=== PATIENT | male | born 1975 | race Caucasian/White ===

== ENCOUNTER 2019-06-16 03:26 | Outpatient (CLI) | payer MEDICARE | END 2019-06-16 03:27 | disposition critical access hospital (66) | LOC: EMS 03:26 | PROVIDERS: ATTEND Surgery | DX: R10.9 Unspecified abdominal pain (principal); R19.7 Diarrhea, unspecified | CPT/HCPCS: A0425; A0429 ==

== ENCOUNTER 2019-06-16 03:44 | Emergency (ER) | payer MEDICARE ==
--- NOTE | 2019-06-16 04:19 | ED Physician Documentation ---
PD HPI ABD PAIN - Stated complaint Stated Complaint: ABD PAIN - Chief complaint Chief Complaint: Abd Pain - History obtained from History obtained from: Patient, EMS - History of Present Illness Timing - onset: How many days ago (3) Timing - duration: Days Timing - details: Gradual onset, Intermittant, Waxing and waning Pain level max: 6 Pain level now: 2 Quality: Cramping Location: All over / everywhere Radiation: Other (no radiation) Improved by: Other (no ameliorating factors) Worsened by: Other (no exacerbating factors) Associated symptoms: Diarrhea. No: Fever, Nausea, Vomiting, Melena, Hematochezia Similar symptoms before: Has not had sx before Recently seen: Not recently seen Review of Systems Constitutional: reports: Reviewed and negative Cardiac: reports: Reviewed and negative Respiratory: reports: Reviewed and negative GI: reports: Abdominal Pain, Diarrhea. denies: Nausea, Vomiting, Hematemesis, Bloody / black stool : denies: Dysuria, Frequency PD PAST MEDICAL HISTORY - Past Medical History Past Medical History: No - Past Surgical History Past Surgical History: No - Present Medications Home Medications: Ambulatory Orders Medication Instructions Recorded Confirmed Cephalexin 500 mg PO TID #20 capsule 10/08/13 Metronidazole [Flagyl] 500 mg PO TID #30 tablet 06/16/19 - Allergies Allergies/Adverse Reactions: Allergies Allergy/AdvReac Type Severity Reaction Status Date / Time No Known Drug Allergies Allergy Verified 10/08/13 07:01 - Social History Does the pt smoke?: Yes Smoking Status: Current every day smoker Does the pt drink ETOH?: No Does the pt have substance abuse?: No - Immunizations Immunizations are current?: Yes - POLST Patient has POLST: No PD ED PE NORMAL - Vitals Vital signs reviewed: Yes - General General: Alert and oriented X 3, No acute distress, Well developed/nourished - Cardiac Cardiac: RRR, No murmur, No gallop, No rub - Respiratory Respiratory: No respiratory distress, Clear bilaterally - Abdomen Abdomen: Soft, Non distended, Other (mild TTP across lower abdomen and periumbilical region) - Back Back: No CVA TTP - Derm Derm: Normal color, Warm and dry, No rash Results - Vitals Vitals: Vital Signs - 24 hr 06/16/19 06:09 Heart Rate 90 Respiratory 16 Rate Blood Pressure 105/58 L O2 Saturation 98 Oxygen O2 Source Room air - Labs Labs: Microbiology 06/16/19 04:35 Campylobacter Antigen Assay - Final Stool Laboratory Tests 06/16/19 06/16/19 06/16/19 04:35 04:45 04:45 WBC 6.9 RBC 4.97 Hgb 14.0 Hct 42.7 MCV 85.9 MCH 28.2 MCHC 32.8 RDW 13.2 Plt Count 247 MPV 10.6 Neut # (Auto) 4.8 Lymph # (Auto) 0.5 L [place] # (Auto) 1.5 H Eos # (Auto) 0.1 Baso # (Auto) 0.1 Absolute Nucleated RBC 0.00 Nucleated RBC % 0.0 Sodium 133 L Potassium 3.0 L Chloride 94 L Carbon Dioxide 28 Anion Gap 11.0 BUN 19 Creatinine 1.0 Estimated GFR (MDRD) 81 L Glucose 123 H Calcium 8.2 L Total Bilirubin 1.6 H AST 13 ALT 17 Alkaline Phosphatase 59 Total Protein 6.7 Albumin 3.3 Globulin 3.4 Albumin/Globulin Ratio 1.0 Lipase 18 L Urine Color Urine Clarity Urine pH Ur Specific [place] Urine Protein Urine Glucose (UA) Urine Ketones Urine Occult Blood Urine Nitrite Urine Bilirubin Urine Urobilinogen Ur Leukocyte Esterase Ur Microscopic Review Urine Culture Comments Stl C. diff Tox B Gene POSITIVE A* 06/16/19 06:00 WBC RBC Hgb Hct MCV MCH MCHC RDW Plt Count MPV Neut # (Auto) Lymph # (Auto) [place] # (Auto) Eos # (Auto) Baso # (Auto) Absolute Nucleated RBC Nucleated RBC % Sodium Potassium Chloride Carbon Dioxide Anion Gap BUN Creatinine Estimated GFR (MDRD) Glucose Calcium Total Bilirubin AST ALT Alkaline Phosphatase Total Protein Albumin Globulin Albumin/Globulin Ratio Lipase Urine Color YELLOW Urine Clarity CLEAR Urine pH 6.5 Ur Specific [place] <=1.005 Urine Protein TRACE Urine Glucose (UA) NEGATIVE Urine Ketones 40 H Urine Occult Blood NEGATIVE Urine Nitrite NEGATIVE Urine Bilirubin NEGATIVE Urine Urobilinogen 1 (NORMAL) Ur Leukocyte Esterase NEGATIVE Ur Microscopic Review NOT INDICATED Urine Culture Comments NOT INDICATED Stl C. diff Tox B Gene - Rads (name of study) CT A/P Radiology: Prelim report reviewed, See rad report PD MEDICAL DECISION MAKING - ED course Complexity details: reviewed results, re-evaluated patient, considered differential, d/w patient Departure - Departure Disposition: 01 Home, Self Care Clinical Impression: Clostridium difficile colitis Condition: Good Instructions: Clostridium Difficile Infec Prescriptions: Metronidazole [Flagyl] 500 mg PO TID #30 tablet Discharge Date/Time: 06/16/19 08:09
[2019-06-16] MEDS ORDERED: SODIUM CHLORIDE 0.9% 1,000 ML IV STA (04:35)
[2019-06-16] MEDS ORDERED: IOVERSOL 320 100 ML VIAL IVP ONE ×2 (04:56→05:52)
[2019-06-16 05:21] LABS: BASOPHILS # (AUTO) 0.1 10^3/uL (0.0-0.1); EOSINOPHILS # (AUTO) 0.1 10^3/uL (0.0-0.7); EOSINOPHILS % (AUTO) 0.9 %; LYMPHOCYTES # (AUTO) 0.5 10^3/uL (1.5-3.5); LYMPHOCYTES % (AUTO) 6.8 %; MEAN CORPUSCULAR HEMOGLOBIN 28.2 pg (27.0-31.0); MEAN CORPUSCULAR HGB CONC 32.8 g/dL (32.0-36.0); MEAN CORPUSCULAR VOLUME 85.9 fL (80.0-94.0); MEAN PLATELET VOLUME 10.6 fL (7.4-11.4); MONOCYTES # (AUTO) 1.5 10^3/uL (0.0-1.0); MONOCYTES % (AUTO) 21.1 %; NEUTROPHILS # (AUTO) 4.8 10^3/uL (1.5-6.6); NEUTROPHILS % (AUTO) 69.6 %; PLT - PLATELET COUNT 247 10^3/uL (130-450); RED BLOOD COUNT 4.97 10^6/uL (4.70-6.10); RED CELL DISTRIBUTION WIDTH 13.2 % (12.0-15.0); WHITE BLOOD COUNT 6.9 x10^3/uL (4.8-10.8)
[2019-06-16 05:30] LABS: ALBUMIN 3.3 g/dL (3.2-5.5); BILIRUBIN,TOTAL 1.6 mg/dL (0.2-1.0); CALCIUM 8.2 mg/dL (8.5-10.3); TOTAL PROTEIN 6.7 g/dL (6.7-8.2)
[2019-06-16 06:09] VITALS: BP 105/58
--- NOTE | 2019-06-16 06:10 | CT Report ---
Reason: LLQ abdominal pain Procedure Date: 06/16/2019 Accession Number: [id number] / [id number] Procedure: CT - Abdomen/Pelvis W CPT Code: FULL RESULT: EXAM: CT ABDOMEN AND PELVIS EXAM DATE: 06/16/2019 05:55 AM. CLINICAL HISTORY: LLQ abdominal pain. COMPARISONS: None. TECHNIQUE: Routine helical CT imaging was performed through the abdomen and pelvis. IV contrast: OPTI 320 100ML. Enteric contrast: No. Reconstructions: Coronal and sagittal. In accordance with CT protocol optimization, one or more of the following dose reduction techniques were utilized for this exam: automated exposure control, adjustment of mA and/or KV based on patient size, or use of iterative reconstructive technique. FINDINGS: Lung Bases: Unremarkable. Liver: No focal abnormality seen. Gallbladder/Bile Ducts: Cholelithiasis. No obvious cholecystitis. Spleen: Normal. Pancreas: Normal. Adrenal Glands: Normal. Kidneys: Normal. No masses or hydronephrosis. Peritoneal Cavity/Bowel: Colonic wall thickening from the transverse colon through the rectum consistent with colitis. No bowel obstruction seen. No free air or free fluid. No diverticulitis. Normal-sized retroperitoneal lymph nodes. Appendix is not well seen. No evidence of appendicitis. Pelvic Organs: Urinary bladder wall thickening. Vasculature: No aneurysms or other significant abnormality. Bones: No significant abnormality. Other: None. IMPRESSION: 1. Colitis from the transverse colon through the rectum, most likely infectious colitis or inflammatory bowel disease. 2. Urinary bladder wall thickening. Correlate with urinalysis for the possibility of cystitis. 3. Cholelithiasis without evidence of cholecystitis. RADIA
[2019-06-16 06:16] LABS: GLUCOSE, URINE (UA) NEGATIVE (NEGATIVE); KETONES,URINE (UA) 40 mg/dL (NEGATIVE); LEUKOCYTE ESTERASE, URINE NEGATIVE (NEGATIVE); NITRITE,URINE NEGATIVE (NEGATIVE); OCCULT BLOOD,URINE NEGATIVE (NEGATIVE); PH,URINE 6.5 PH (5.0-7.5); PROTEIN,URINE TRACE mg/dL (NEGATIVE); UROBILINOGEN,URINE 1 (NORMAL) E.U./dL (NORMAL)
[2019-06-16 06:19] LABS: BILIRUBIN,URINE NEGATIVE (NEGATIVE); CLARITY,URINE CLEAR (CLEAR); ICTOTEST,URINE NEGATIVE
[2019-06-16] MEDS ORDERED: metroNIDAZOLE 250 MG TABLET PO STA (07:54)
== END 2019-06-16 08:09 | disposition home or self-care (01) ==
LOC: EDUNIT# → EDBD → ED 03:44
DX: A04.72 Enterocolitis due to Clostridium difficile, not specified as recurrent (principal); K80.20 Calculus of gallbladder without cholecystitis without obstruction; F17.200 Nicotine dependence, unspecified, uncomplicated
CPT/HCPCS: 36415; 74177; 80053; 81003; 83690; 85025; 87045; 87046; 87493; 96360; 99284; A9270; Q9967; 81001; 87086

== ENCOUNTER 2020-10-30 15:24 | Emergency (ER) | payer SELFPAY ==
[2020-10-30] MEDS ORDERED: BUFFERED LIDOCAINE 10 ML SYRINGE SUBQ STA (15:34)
[2020-10-30] MEDS ORDERED: TETANUS/DIPHTHERIA/PERTUSSIS 0.5 ML SYRINGE IM ONE (15:34)
--- NOTE | 2020-10-30 15:36 | ED Physician Documentation ---
PD HPI UPPER EXT INJURY - Stated complaint Stated Complaint: LT HAND LAC - Chief complaint Chief Complaint: Laceration - History obtained from History obtained from: Patient - Additonal information Additional information: Right Handed gentleman with unknown tetanus status cut the dorsum of his left hand with an axe accidentally just prior to arrival. Review of Systems Constitutional: reports: Reviewed and negative Eyes: reports: Reviewed and negative Ears: reports: Reviewed and negative Nose: reports: Reviewed and negative Throat: reports: Reviewed and negative PD PAST MEDICAL HISTORY - Past Surgical History Past Surgical History: No - Present Medications Home Medications: Ambulatory Orders Medication Instructions Recorded Confirmed HYDROcod/ACETAM 5/325 [Linden 5/325] 1 - 2 tab PO Q6H PRN #15 tablet 10/30/20 cephALEXin [Keflex] 500 mg PO Q6H #28 cap 10/30/20 - Allergies Allergies/Adverse Reactions: Allergies Allergy/AdvReac Type Severity Reaction Status Date / Time No Known Drug Allergies Allergy Verified 10/30/20 15:27 - Social History Does the pt smoke?: Yes Smoking Status: Current every day smoker Does the pt drink ETOH?: No Does the pt have substance abuse?: No - Immunizations Immunizations are current?: Yes - POLST Patient has POLST: No PD ED PE NORMAL - Vitals Vital signs reviewed: Yes - General General: Alert and oriented X 3, No acute distress - Extremities Extremities: Other (3 cm laceration oblique over the dorsal mid second and third metacarpals without distal neurovascular compromise. Tendon function will be tested after anesthetic.) - Neuro Neuro: Alert and oriented X 3, Normal speech Results - Vitals Vitals: Vital Signs - 24 hr 10/30/20 15:29 Temperature 35.8 C L Heart Rate 96 Respiratory 20 Rate Blood Pressure 155/95 H O2 Saturation 97 Oxygen O2 Source Room air Procedures - Laceration (location) L hand Length in cm: 3 Wound type: Linear Neurovascular status: Sensory intact, Vascular intact Tendon involvement: Tendon Injury (On wound exploration after anesthetic became clear that the extensor tendon of the second digit was at least partially lacerated and probably a partial laceration of the third extensor tendon 2.) Anesthesia: Lidocaine 1%, With bicarb Wound preparation: Irrigated copiously NS Skin layer closure: Nylon, Interrupted, Size #-0 - enter number (4-0), Sutures - enter # (5) Other: Patient tolerated well, No complications, Tetanus booster given - Splint (location) L hand Splint applied by: Tech Type of splint: Fiberglass, Short arm, Volar cock up Other: Patient tolerated well, No complications, Neurovascular intact PD MEDICAL DECISION MAKING - ED course ED course: 45-year-old gentleman presents with nondominant hand injury, labs from 3 significant tenderness I did Apley a partial one of the third. It was thoroughly washed out and the skin was closed. He is placed on Keflex. An x- ray was done With evidence of a unicortical dorsal second metacarpal fracture. He was splinted and I discussed the case with the on-call orthopedist, Dr. Dimitris Miller by phone who will see him in follow-up. Departure - Departure Disposition: 01 Home, Self Care Clinical Impression: Open fracture metacarpal bone of finger Hand laceration involving tendon Qualifiers: Encounter type: initial encounter Laterality: left Qualified Code(s): S61.412A - Laceration without foreign body of left hand, initial encounter; S66.922A - Laceration of unspecified muscle, fascia and tendon at wrist and hand level, left hand, initial encounter Condition: Good Record reviewed to determine appropriate education?: Yes Instructions: ED Fx Hand Open, ED Laceration Tendon Follow-Up: [facility] [Provider Group] Prescriptions: cephALEXin [Keflex] 500 mg PO Q6H #28 cap HYDROcod/ACETAM 5/325 [Linden 5/325] 1 - 2 tab PO Q6H PRN #15 tablet PRN Reason: Pain Comments: You do have a tendon laceration and a little chip of bone where the ax hit you. This requires follow-up with an orthopedic surgeon. Call their office today or tomorrow for the next available appointment. I did discuss her case by phone with Dr. Dimitris Miller who is in the office.
[2020-10-30] MEDS ORDERED: cephALEXin 250 MG CAPSULE PO STA (16:03)
--- NOTE | 2020-10-30 16:21 | XRAY Report ---
PROCEDURE: Hand 3 View LT INDICATIONS: hand lac TECHNIQUE: 3 views of the hand(s) acquired. COMPARISON: None. FINDINGS: A subtle linear lucency involving the cortex of the third metacarpal although only seen on one view Soft tissue laceration along the dorsal aspect of the hand. IMPRESSION: Possible incomplete nondisplaced fracture involving the third metacarpal, however technically indeter minate. Further assessment/confirmation could be obtained with repeat radiograph in 10 days to assess for healing sclerosis. Overlying soft tissue laceration and swelling. Reviewed by: Favio Murdock MD on 10/30/2020 4:20 PM [facility] Approved by: Favio Murdock MD on 10/30/2020 4:20 PM [facility] Station ID: [id number]
[2020-10-30 16:47] VITALS: BP 138/85
== END 2020-10-30 16:53 | disposition home or self-care (01) ==
LOC: ED 15:24
DX: S62.301B Unspecified fracture of second metacarpal bone, left hand, initial encounter for open fracture (principal); S66.321A Laceration of extensor muscle, fascia and tendon of left index finger at wrist and hand level, initial encounter; W27.0XXA Contact with workbench tool, initial encounter; Y93.89 Activity, other specified; Z23 Encounter for immunization; F17.200 Nicotine dependence, unspecified, uncomplicated
CPT/HCPCS: 12042; 29125; 73130; 90471; 90715; 99283; A9270

== ENCOUNTER 2021-12-15 17:19 | Emergency (ER) | payer MEDICAID ==
[2021-12-15 17:26] VITALS: BP 109/88
[2021-12-15] MEDS ORDERED: CLINDAMYCIN 150 MG CAPSULE PO STA (17:33)
--- NOTE | 2021-12-15 17:35 | ED Physician Documentation ---
PD HPI WOUND RECHECK - Stated complaint Stated Complaint: RT LEG WOUNDS - Chief complaint Chief Complaint: Wound - Histroy obtained from History obtained from: Patient - Additional information Additional information: 46-year-old gentleman has right greater than left leg wounds for the last few days. No recollected meant mechanism of injury. When asked if he has been using any methamphetamines he said not recently but seem to vacillate on the story. He denies fevers or chills. Just has pain from weeping wounds on the legs. Review of Systems Constitutional: denies: Fever, Chills Nose: denies: Rhinorrhea / runny nose, Congestion Cardiac: reports: Reviewed and negative Respiratory: reports: Reviewed and negative PD PAST MEDICAL HISTORY - Past Medical History Cardiovascular: None Respiratory: None Neuro: None Endocrine/Autoimmune: None GI: None : None HEENT: None Psych: Other Musculoskeletal: None Derm: None - Past Surgical History Past Surgical History: No - Present Medications Home Medications: Ambulatory Orders Medication Instructions Recorded Confirmed clindamycin HCL [Cleocin HCl] 300 mg PO QID #28 cap 12/15/21 - Allergies Allergies/Adverse Reactions: Allergies Allergy/AdvReac Type Severity Reaction Status Date / Time No Known Drug Allergies Allergy Verified 12/15/21 17:21 - Social History Does the pt smoke?: Yes Smoking Status: Current every day smoker Does the pt drink ETOH?: No Does the pt have substance abuse?: No - Immunizations Immunizations are current?: No Immunizations: Other immun not current - POLST Patient has POLST: No PD ED PE NORMAL - Vitals Vital signs reviewed: Yes - General General: Alert and oriented X 3, No acute distress - Extremities Extremities: Other (There are cellular several purulent based ulcers on the right greater than left leg, 2 on the anterior mac and 1 on the posteromedial mac and then some smaller ones on the anterior left mac.) - Neuro Neuro: Alert and oriented X 3, Normal speech Results - Vitals Vitals: Vital Signs - 24 hr 12/15/21 17:22 Temperature 36.6 C Heart Rate 88 Respiratory 18 Rate Blood Pressure 109/88 H O2 Saturation 97 Oxygen O2 Source Room air PD MEDICAL DECISION MAKING - ED course ED course: 46-year-old gentleman with a few purulent leg wounds of unclear etiology. He is started on clindamycin pending culture data. He declines pain medications. Departure - Departure Disposition: Home, Self Care Clinical Impression: Bilateral leg ulcer Qualifiers: Non-pressure ulcer stage: limited to breakdown of skin Qualified Code(s): L97.911 - Non-pressure chronic ulcer of unspecified part of right lower leg limited to breakdown of skin; L97.921 - Non-pressure chronic ulcer of unspecified part of left lower leg limited to breakdown of skin Condition: Good Record reviewed to determine appropriate education?: Yes Instructions: ED Bonny Infec Abx Tx Only Prescriptions: clindamycin HCL [Cleocin HCl] 300 mg PO QID #28 cap Comments: I sent the prescription for antibiotics electronically to [facility] in [place]. For wound care keep them clean and dry, washing with soap and water at least daily. Return Friday or Friday morning for recheck and culture review.
== END 2021-12-15 18:00 | disposition home or self-care (01) ==
LOC: ED 17:19
DX: L97.821 Non-pressure chronic ulcer of other part of left lower leg limited to breakdown of skin (principal); L97.811 Non-pressure chronic ulcer of other part of right lower leg limited to breakdown of skin; F17.200 Nicotine dependence, unspecified, uncomplicated
CPT/HCPCS: 87070; 87077; 87205; 99283; A9270

== ENCOUNTER 2023-07-24 17:24 | Emergency (ER) | payer MEDICAID ==
[2023-07-24 17:43] VITALS: BP 165/94; O2SAT 100
[2023-07-24] MEDS ORDERED: cephALEXin 250 MG CAPSULE PO STA (18:01)
[2023-07-24] MEDS ORDERED: SULFAMETH/TRIMETH DS 800/160 MG TABLET PO STA (18:01)
--- NOTE | 2023-07-24 18:03 | ED Physician Documentation ---
History of Present Illness - Stated complaint Stated Complaint: BILAT LEG PX - Chief complaint Chief Complaint: Ext Problem - History obtained from History obtained from: Patient - History of Present Illness Timing: Chronic Pain level max: 0 Pain level now: 0 - Additonal information Additional information: 47-year-old male with chronic bilateral lower extremity wounds and redness. Has not followed up with a PCP. He states they started becoming more red and inflamed a few days ago so he came in for evaluation. Denies any recent drug use. No fevers. No chills. Nothing makes it better or worse. He states his legs are not more swollen than usual. He is not on any medications at home. Review of Systems Constitutional: denies: Fever, Chills Cardiac: denies: Chest pain / pressure, Palpitations Respiratory: denies: Dyspnea, Cough GI: denies: Nausea, Vomiting Skin: denies: Rash Musculoskeletal: denies: Neck pain, Back pain Neurologic: denies: Headache PD PAST MEDICAL HISTORY - Past Medical History Cardiovascular: None Respiratory: None Neuro: None Endocrine/Autoimmune: None GI: None : None HEENT: None Psych: Other Musculoskeletal: None Derm: None - Past Surgical History Past Surgical History: No - Present Medications Home Medications: Ambulatory Orders Medication Instructions Recorded Confirmed Sulfamethox/Trimeth 800/160 1 each PO BID #20 tablet 07/24/23 [Bactrim Ds 800/160] cephALEXin [Keflex] 500 mg PO Q6H #40 cap 07/24/23 - Allergies Allergies/Adverse Reactions: Allergies Allergy/AdvReac Type Severity Reaction Status Date / Time No Known Drug Allergies Allergy Verified 07/24/23 17:36 - Social History Does the pt smoke?: Yes Smoking Status: Current every day smoker Does the pt drink ETOH?: No Does the pt have substance abuse?: No - Immunizations Immunizations are current?: No Immunizations: Other immun not current - POLST Patient has POLST: No PD ED PE NORMAL - Vitals Vital signs reviewed: Yes - General General: Alert and oriented X 3, No acute distress - HEENT HEENT: Moist mucous membranes - Neck Neck: Supple, no meningeal sign - Cardiac Cardiac: RRR - Respiratory Respiratory: No respiratory distress, Clear bilaterally - Derm Derm: Warm and dry - Extremities Extremities: Other (Bilateral lower extremities of small open sores, slight yellow drainage. No significant warmth. Have chronic appearing erythema. No calf tenderness or cord.) - Neuro Neuro: Alert and oriented X 3 Results - Vitals Vitals: Vital Signs - 24 hr 07/24/23 17:30 Temperature 36.6 C Heart Rate 87 Respiratory 17 Rate Blood Pressure 165/94 H O2 Saturation 100 Oxygen O2 Source Room air PD Medical Decision Making - ED course Complexity details: considered differential, d/w patient ED course: Patient is well-appearing, nontoxic. Afebrile. No evidence of sepsis. He has chronic appearing wounds that may be secondarily infected now. Will start him on antibiotics. Recommended follow-up with his PCP closely for wound care. He was given information for the walk-in clinic in [place] so he can be followed there as well. Patient declines any pain medication here for home. Patient counseled regarding signs and symptoms for which I believe and urgent re- evaluation would be necessary. Patient with good understanding of and agreement to plan and is comfortable going home at this time This document was made in part using voice recognition software. While efforts are made to proofread this document, sound alike and grammatical errors may occur. Departure - Departure Disposition: 01 Home, Self Care Clinical Impression: Cellulitis Qualifiers: Site of cellulitis: extremity Site of cellulitis of extremity: lower extremity Laterality: unspecified laterality Qualified Code(s): L03.119 - Cellulitis of unspecified part of limb Condition: Good Instructions: ED Infec Skin Cellulitis Follow-Up: [facility] [place] [Provider Group] Prescriptions: Sulfamethox/Trimeth 800/160 [Bactrim Ds 800/160] 1 each PO BID #20 tablet cephALEXin [Keflex] 500 mg PO Q6H #40 cap Comments: Your prescriptions were sent to [facility] in [place]. Take all antibiotics until gone. Is important to follow-up closely with the walk-in clinic in [place] so that they can monitor your legs and treat your chronic wounds. Please return if you worsen, including fevers, increasing pain or worsening redness or swelling. Please elevate your legs whenever possible. Forms: PCP List Discharge Date/Time: 07/24/23 18:20
== END 2023-07-24 18:20 | disposition home or self-care (01) ==
LOC: ED 17:24
DX: L03.116 Cellulitis of left lower limb (principal); L03.115 Cellulitis of right lower limb; F17.200 Nicotine dependence, unspecified, uncomplicated
CPT/HCPCS: 99282; 99283; A9270

== ENCOUNTER 2024-03-11 10:05 | Emergency (ER) | payer MEDICAID ==
[2024-03-11 10:36] VITALS: O2SAT 99
--- NOTE | 2024-03-11 11:24 | XRAY Report ---
PROCEDURE: Tib/Fib LT INDICATIONS: infection, open draining sore TECHNIQUE: 2 views of the tibia and fibula were acquired. COMPARISON: None. FINDINGS: Bones: No fractures or dislocations. No suspicious bony lesions. Soft tissues: No suspicious soft tissue calcifications or masses. IMPRESSION: No acute bony abnormality. Reviewed by: Isaura Bhatt MD, PhD on 03/11/2024 11:23 AM PDT Approved by: Isaura Bhatt MD, PhD on 03/11/2024 11:23 AM PDT Station ID: [id number]
--- NOTE | 2024-03-11 11:26 | ED Physician Documentation ---
PD HPI SKIN - Stated complaint Stated Complaint: LT LEG PX,NUMBNESS - Chief complaint Chief Complaint: Wound - History obtained from History obtained from: Patient - Additional information Additional information: The patient comes to the emergency department chief complaint of left lower extremity swelling and raw spots. 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 He states that he has chronic discoloration and swelling of his lower extremities but that they are usually symmetrical in size. He states that the left one has swollen bigger over the last approximately 1 to 2 days since he has been on his feet more. He states that he has not noticed any drainage but has noticed beefy red areas that seem to be without skin. He says he was supposed to follow-up with a vascular surgeon but as yet has not done this. He denies numbness or tingling in his lower extremities. No other complaints at this time. PD PAST MEDICAL HISTORY - Past Medical History Cardiovascular: None Respiratory: None Neuro: None Endocrine/Autoimmune: None GI: None : None HEENT: None Psych: Other Musculoskeletal: None Derm: None - Past Surgical History Past Surgical History: No - Present Medications Home Medications: Ambulatory Orders Medication Instructions Recorded Confirmed Sulfamethox/Trimeth 800/160 1 each PO BID #20 tablet 07/24/23 [Bactrim Ds 800/160] cephALEXin [Keflex] 500 mg PO Q6H #40 cap 07/24/23 - Allergies Allergies/Adverse Reactions: Allergies Allergy/AdvReac Type Severity Reaction Status Date / Time Opioids - Morphine Analogues Allergy Anxiety Verified 03/11/24 10:34 - Social History Does the pt smoke?: Yes Smoking Status: Current every day smoker Does the pt drink ETOH?: No Does the pt have substance abuse?: No - Immunizations Immunizations are current?: No Immunizations: Other immun not current - POLST Patient has POLST: No PD ED PE NORMAL - Vitals Vital signs reviewed: Yes - General General: Alert and oriented X 3, No acute distress, Well developed/nourished - HEENT HEENT: Atraumatic, EOMI, Moist mucous membranes - Neck Neck: Supple, no meningeal sign - Cardiac Cardiac: Strong equal pulses - Respiratory Respiratory: No respiratory distress - Derm Derm: Warm and dry, Other (Notable skin changes on bilateral lower extremities consistent with stasis dermatitis. No erythema extending beyond the area of chronic change. Left leg noticeably enlarged compared to right with cracking of skin and beefy red tissue exposed in scattered small places. No drainage. No fluctuance.) - Extremities Extremities: No deformity, Other (Moderate edema bilateral lower extremities, worse on the left.) - Neuro Neuro: Alert and oriented X 3 - Psych Psych: Normal mood, Normal affect Results - Vitals Vitals: Vital Signs - 24 hr 03/11/24 10:32 Temperature 36.8 C Heart Rate 97 Respiratory 20 Rate Blood Pressure 140/116 H O2 Saturation 99 Oxygen O2 Source Room air - Labs Labs: Laboratory Tests 03/11/24 11:32 WBC 9.1 RBC 4.84 Hgb 13.4 L Hct 41.2 L MCV 85.1 MCH 27.7 MCHC 32.5 RDW 14.3 Plt Count 270 MPV 9.1 Neut # (Auto) 7.1 H Lymph # (Auto) 1.2 L [place] # (Auto) 0.6 Eos # (Auto) 0.2 Baso # (Auto) 0.1 Absolute Nucleated RBC 0.00 Nucleated RBC % 0.0 - Rads (name of study) Ultrasound left lower extremity Relevant Findings:: Final report received, See rad report (Negative) PD Medical Decision Making - ED course Complexity details: reviewed results, re-evaluated patient, considered differential, d/w patient ED course: The patient appeared mostly to have chronic appearing changes to the skin of his lower legs consistent with chronic stasis dermatitis, but did appear to have some more acute edema of his left lower extremity, causing some of the skin on the anterior tibial area to crack and reveal beefy red tissue beneath. X-ray of the lower leg was obtained and did not show any soft tissue air. Ultrasound was obtained to evaluate for possible DVT as a cause of the swelling, And this was negative. We have placed a bacitracin dressing on the patient's leg. I am not sure what caused him to swell but I have not found an emergent condition and I do not think he needs antibiotics. We have discussed home care of the leg and the need for follow-up. Departure - Departure Disposition: 01 Home, Self Care Clinical Impression: Peripheral vascular disease, Stasis dermatitis of both legs, Lower extremity edema Condition: Stable Instructions: ED Leg Swelling Unilateral, ED PVD Comments: Your ultrasound is negative for blood clot and the examination of your leg, although showing increased size and some splitting of the skin, does not show any color that is different from the right leg To indicate infection. Additionally, your blood work looks good and you have not had any fevers. It is not exactly clear why your left leg has become swollen, but there is no emergent cause for this that has been identified at this time. Antibiotics will not be helpful as there is no evidence of infection. Please schedule an appointment to follow-up with your primary doctor. We have dressed her leg for you and you may get some Neosporin [id number] at the store and continue placing dressings to protect the leg. Please prop your leg up whenever you are sitting or laying down, to help drain some of the swelling out of the leg. Forms: PCP List
[2024-03-11 11:36] LABS: BASOPHILS # (AUTO) 0.1 10^3/uL (0.0-0.1); BASOPHILS % (AUTO) 0.5 %; EOSINOPHILS # (AUTO) 0.2 10^3/uL (0.0-0.7); EOSINOPHILS % (AUTO) 2.4 %; HCT - HEMATOCRIT 41.2 % (42.0-52.0); HGB - HEMOGLOBIN 13.4 g/dL (14.0-18.0); LYMPHOCYTES # (AUTO) 1.2 10^3/uL (1.5-3.5); LYMPHOCYTES % (AUTO) 12.6 %; MEAN CORPUSCULAR HEMOGLOBIN 27.7 pg (27.0-31.0); MEAN CORPUSCULAR HGB CONC 32.5 g/dL (32.0-36.0); MEAN CORPUSCULAR VOLUME 85.1 fL (80.0-94.0); MEAN PLATELET VOLUME 9.1 fL (7.4-11.4); MONOCYTES # (AUTO) 0.6 10^3/uL (0.0-1.0); MONOCYTES % (AUTO) 6.6 %; NEUTROPHILS # (AUTO) 7.1 10^3/uL (1.5-6.6); NEUTROPHILS % (AUTO) 77.7 %; PLT - PLATELET COUNT 270 10^3/uL (130-450); RED BLOOD COUNT 4.84 10^6/uL (4.70-6.10); RED CELL DISTRIBUTION WIDTH 14.3 % (12.0-15.0); WHITE BLOOD COUNT 9.1 x10^3/uL (4.8-10.8)
[2024-03-11] MEDS: BACITRACIN ZINC OINT 1 PACKET TOP STA (12:27)
--- NOTE | 2024-03-11 12:34 | Ultrasound Report ---
PROCEDURE: Duplex Ext Veins Left INDICATIONS: pain/swelling TECHNIQUE: Real-time imaging, as well as color and pulse Doppler interrogation, were performed of the lower extr emity deep veins from the inguinal ligament to the popliteal fossa. Attempted visualization of the ca lf veins was performed. COMPARISON: None. FINDINGS: The deep veins are normally compressible, and free of intraluminal thrombus. Color and pu lse Doppler demonstrate normal phasic intraluminal flow. There is normal augmentation response to di stal compression maneuver. Prominent left inguinal lymph nodes with normal fatty hilum. IMPRESSION: No deep venous thrombosis of the visualized lower extremity. Prominent left inguinal lymph nodes with normal fatty hilum, likely reactive. Reviewed by: Darrius Park MD on 03/11/2024 12:32 PM PDT Approved by: Darrius Park MD on 03/11/2024 12:32 PM PDT Station ID: [id number]
[2024-03-11 12:42] VITALS: BP 148/67
== END 2024-03-11 12:35 | disposition home or self-care (01) ==
LOC: ED 10:05
DX: I87.2 Venous insufficiency (chronic) (peripheral) (principal); I73.9 Peripheral vascular disease, unspecified; F17.200 Nicotine dependence, unspecified, uncomplicated
CPT/HCPCS: 36415; 85025; 99284

== ENCOUNTER 2024-03-24 12:49 | Emergency (ER) | payer MEDICAID ==
--- NOTE | 2024-03-24 13:19 | ED Physician Documentation ---
History of Present Illness - Stated complaint Stated Complaint: L LEG SWELLING/PX - Chief complaint Chief Complaint: Ext Problem - History obtained from History obtained from: Patient - Additonal information Additional information: Patient is a 48-year-old male presenting to the emergency department with history of chronic dermatitis and peripheral vascular disease bilateral lower leg swelling. Patient was seen here in the emergency department on for similar symptoms. Patient notes swelling to his leg has decreased but he continues to have burning sensation to his left leg. He has been wrapping it at home and using the bacitracin cream and trying to keep it clean and dry. Patient denies any fevers or chills. Denies any numbness only burning sensation to the lower leg. He has not followed up with anyone and is not on any oral antibiotics for this. He had an ultrasound and x-ray done showing no acute findings no signs of DVT osteomyelitis or right leg fracture when he was seen he re in the emergency department on Friday. PD PAST MEDICAL HISTORY - Past Medical History Past Medical History: Yes Cardiovascular: None Respiratory: None Neuro: None Endocrine/Autoimmune: None GI: None : None HEENT: None Psych: Other Musculoskeletal: None Derm: None - Past Surgical History Past Surgical History: No - Present Medications Home Medications: Ambulatory Orders Medication Instructions Recorded Confirmed RX: Hydrocortisone 1% Cream 1 applic TOP BID #28 gm 03/24/24 [Hydrocortisone] RX: Lidocaine Ointment 5% 1 applic TOP ONCE #35.44 gm 03/24/24 [Xylocaine Ointment 5%] - Allergies Allergies/Adverse Reactions: Allergies Allergy/AdvReac Type Severity Reaction Status Date / Time Opioids - Morphine Analogues Allergy Anxiety Verified 03/24/24 13:13 - Social History Does the pt smoke?: Yes Smoking Status: Current every day smoker Does the pt drink ETOH?: No Does the pt have substance abuse?: No - Immunizations Immunizations are current?: No Immunizations: Other immun not current - POLST Patient has POLST: No PD ED PE NORMAL - General General: Alert and oriented X 3 - HEENT HEENT: Atraumatic, PERRL, EOMI - Neck Neck: Supple, no meningeal sign - Cardiac Cardiac: RRR, No murmur, No gallop, No rub - Respiratory Respiratory: No respiratory distress, Clear bilaterally - Abdomen Abdomen: Normal bowel sounds, Soft, Non tender, Non distended - Extremities Extremities: Other - Free text exam Free text exam: Left leg wound evaluation shows no significant swelling or pitting edema pulses intact distally mild erythema and warmth to light touch but no open wounds or drainage from wounds. No pitting edema. Good capillary refill and DP and PT pulses 2+. Sensation intact bilaterally. Full range of motion of left ankle digits 1 through 5 and left knee intact. Patient able to ambulate and bear weight on left leg. No significant swelling noted to right leg or appreciable ulcers or swelling., Results - Vitals Vitals: Vital Signs - 24 hr 03/24/24 13:08 Temperature 36.7 C Heart Rate 84 Respiratory 16 Rate Blood Pressure 138/78 H O2 Saturation 97 Oxygen O2 Source Room air - Labs Labs: Laboratory Tests 03/24/24 03/24/24 03/24/24 13:55 13:55 13:55 WBC 6.2 RBC 4.74 Hgb 13.1 L Hct 40.1 L MCV 84.6 MCH 27.6 MCHC 32.7 RDW 14.0 Plt Count 259 MPV 9.4 Neut # (Auto) 4.0 Lymph # (Auto) 1.4 L [place] # (Auto) 0.5 Eos # (Auto) 0.3 Baso # (Auto) 0.0 Absolute Nucleated RBC 0.00 Nucleated RBC % 0.0 ESR 6 Sodium 138 Potassium 3.7 Chloride 105 Carbon Dioxide 28 Anion Gap 5.0 L BUN 25 H Creatinine 0.9 Estimated GFR (MDRD) 89 Glucose 94 Calcium 9.0 Total Bilirubin 0.3 AST 16 ALT 14 Alkaline Phosphatase 72 C-Reactive Protein 0.7 H Total Protein 6.7 Albumin 3.8 Globulin 2.9 Albumin/Globulin Ratio 1.3 PD Medical Decision Making - ED course Complexity details: reviewed old records, reviewed results, re-evaluated patient ED course: Patient is a 48-year-old male with past medical history listed above presents to the emergency department history of peripheral vascular disease dermatitis as burning sensation to left leg he was seen here on 03/11 for similar symptoms with worsening swelling to his leg. He notes his swelling has improved and at that time he had a negative x-ray of the left leg and ultrasound. He was discharged home on bacitracin cream and has been applying this as well as wrapping it with gauze he was given. He notes since burning sensation has been persistent at home he notes no worsening discoloration no open wounds no recent trauma. No fevers or chills. Vitals are stable on arrival. Physical exam does show no significant swelling to left leg however erythema is notable with no open wounds purulent drainage from wounds full range of motion patient is able to bear weight good capillary refill and neurovascularly intact to left leg. No palpable inguinal lymphadenopathy on exam. Basic labs obtained including CBC, CMP, ESR, and CRP here in the emergency department no significant elevation in ESR or CRP no leukocytosis and no significant NALDO or electrolyte abnormality. Updated patient on reassuring findings. Discussed with patient symptoms most likely chronic dermatitis walker and chronic venous stasis. He is instructed to continue with bacitracin and keeping wound elevated and covered. Patient given small dose of lidocaine cream to use at home to help with burning sensation as well as steroids given no open wounds and no concern for acute infection at this time. Patient agreeable with this plan. Also recommendations he should follow- up with the PCP in outpatient setting. Strict return precautions given. Patient understands and is agreeable with this plan. Departure - Departure Disposition: 01 Home, Self Care Clinical Impression: Chronic ulcer of left lower leg, Pain of lower extremity, Stasis dermatitis of both legs Condition: Good Prescriptions: RX: Hydrocortisone 1% Cream [Hydrocortisone] 1 applic TOP BID #28 gm RX: Lidocaine Ointment 5% [Xylocaine Ointment 5%] 1 applic TOP ONCE #35.44 gm Comments: Your workup here in the emergency department was reassuring I have no concern for acute or worsening infection to your left leg seems significantly better given the swelling has improved and your labs are reassuring. Your imaging was reassuring from last week and given no worsening changes feel this is reassuring findings. Giving you some cream to see if this will help with the burning sensation as I suspect this is most likely secondary to chronic contact dermatitis as well as possible venous stasis. Keep legs elevated watch for any worsening swelling fevers chest pain shortness of breath discharge from the wounds or any other new or worsening symptoms. Continue with topical antibiotic bacitracin at home. Forms: PCP List
[2024-03-24 14:05] LABS: BASOPHILS % (AUTO) 0.5 %; EOSINOPHILS # (AUTO) 0.3 10^3/uL (0.0-0.7); EOSINOPHILS % (AUTO) 4.4 %; HCT - HEMATOCRIT 40.1 % (42.0-52.0); HGB - HEMOGLOBIN 13.1 g/dL (14.0-18.0); LYMPHOCYTES # (AUTO) 1.4 10^3/uL (1.5-3.5); LYMPHOCYTES % (AUTO) 22.6 %; MEAN CORPUSCULAR HEMOGLOBIN 27.6 pg (27.0-31.0); MEAN CORPUSCULAR HGB CONC 32.7 g/dL (32.0-36.0); MEAN CORPUSCULAR VOLUME 84.6 fL (80.0-94.0); MEAN PLATELET VOLUME 9.4 fL (7.4-11.4); MONOCYTES # (AUTO) 0.5 10^3/uL (0.0-1.0); MONOCYTES % (AUTO) 7.5 %; NEUTROPHILS % (AUTO) 64.8 %; PLT - PLATELET COUNT 259 10^3/uL (130-450); RED BLOOD COUNT 4.74 10^6/uL (4.70-6.10); WHITE BLOOD COUNT 6.2 x10^3/uL (4.8-10.8)
[2024-03-24 14:27] LABS: ALBUMIN 3.8 g/dL (3.2-5.5); ALBUMIN/GLOBULIN RATIO 1.3 (1.0-2.2); BILIRUBIN,TOTAL 0.3 mg/dL (0.2-1.0); CREATININE 0.9 mg/dL (0.6-1.3); CRP - C-REACTIVE PROTEIN 0.7 mg/dL (<0.5); POTASSIUM 3.7 mmol/L (3.5-4.5); TOTAL PROTEIN 6.7 g/dL (6.4-8.9)
[2024-03-24 17:30] VITALS: BP 132/84; O2SAT 100
== END 2024-03-24 15:39 | disposition home or self-care (01) ==
LOC: ED 12:49
DX: I87.2 Venous insufficiency (chronic) (peripheral) (principal); L97.829 Non-pressure chronic ulcer of other part of left lower leg with unspecified severity; F17.200 Nicotine dependence, unspecified, uncomplicated
CPT/HCPCS: 36415; 80053; 85025; 85651; 86140; 99283; 99284